=== PATIENT | male | born 1970 | race Caucasian/White ===

== ENCOUNTER 2019-01-24 09:32 | Inpatient (IN) ==
[2019-01-24] MEDS ORDERED: CeFAZolin Syr 3,000MG/30 ML 3,000 MG/30 ML SYRINGE IVPB ONE (09:54)
[2019-01-24] MEDS ORDERED: Ringers Solution, Lactated 1,000 ML IVC SCH (10:00)
[2019-01-24] MEDS ORDERED: *HR* FentaNYL (PF) 100 MCG/2 ML VIAL ONE (10:12)
[2019-01-24] MEDS ORDERED: Lidocaine -MPF 2% 2 ML VIAL ONE ×2 (10:12→10:42)
[2019-01-24] MEDS ORDERED: Ondansetron 4 MG/2 ML VIAL ONE (10:12)
[2019-01-24] MEDS ORDERED: *HR* Propofol 200 MG/20 ML VIAL IVP ONE (10:12)
[2019-01-24] MEDS ORDERED: *HR* Rocuronium Bromide 50 MG/5 ML VIAL ONE ×2 (10:12→13:10)
[2019-01-24] MEDS ORDERED: *HR* Succinylcholine 200 MG/10 ML VIAL IVP ONE (10:12)
[2019-01-24] MEDS ORDERED: Dexamethasone 4 MG/ML VIAL ONE (10:12)
[2019-01-24] MEDS ORDERED: Scopolamine Patch 1.5 MG PATCH.TD72 TD ONE (10:33)
[2019-01-24] MEDS ORDERED: Ondansetron 4 MG/2 ML VIAL IVP ONE (10:34)
[2019-01-24] MEDS ORDERED: *HR* OxyCODONE Immed Rel 5 MG TABLET PO PRN (10:34)
[2019-01-24] MEDS ORDERED: *HR* Promethazine 25 MG/ML VIAL IVP PRN (10:34)
[2019-01-24] MEDS ORDERED: *HR* HYDROmorphone (PF) 1 MG/ML SYRINGE IVP PRN (10:34)
[2019-01-24] MEDS ORDERED: Ketamine *HR* 500 MG/10 ML MDV ONE (10:39)
[2019-01-24] MEDS ORDERED: *HR* Vasopressin 20 UNIT/ML VIAL ONE (11:56)
[2019-01-24] MEDS ORDERED: *HR* Midazolam HCl 2 MG/2 ML VIAL ONE ×3 (12:02→16:19)
[2019-01-24] MEDS ORDERED: *HR* PHENYLEPHRINE 1,000 MCG/10 ML SYRINGE IVP ONE (12:17)
[2019-01-24] MEDS ORDERED: Hydrocortisone Sodium Succ 100 MG/2 ML VIAL ONE (13:02)
[2019-01-24 13:29] LABS: ABG Base Excess -6 mEq/L (-2 to 3); ABG Chloride 114 mEq/L (98-107); ABG Glucose 95 mg/dL (60-95); ABG HCO3 20 mEq/L (21-27); ABG Ionized Calcium 0.78 mmol/L (1.15-1.35); ABG Oxygen Saturation 94 % (95-98); ABG PCO2 37 mmHg (35-45); ABG PH 7.33 pH Units (7.32-7.45); ABG PO2 75 mmHg (85-104); ABG TCO2 21 mEq/L (20-26)
[2019-01-24] MEDS ORDERED: Bupivacaine/EPI 1:200k 0.25%PF 30 ML VIAL ONE (13:33)
[2019-01-24 13:40] LABS: ABG Base Excess -6 mEq/L (-2 to 3); ABG Chloride 117 mEq/L (98-107); ABG Glucose 106 mg/dL (60-95); ABG HCO3 19 mEq/L (21-27); ABG Ionized Calcium 0.75 mmol/L (1.15-1.35); ABG Oxygen Saturation 97 % (95-98); ABG PCO2 35 mmHg (35-45); ABG PH 7.35 pH Units (7.32-7.45); ABG PO2 92 mmHg (85-104); ABG TCO2 20 mEq/L (20-26)
[2019-01-24] MEDS ORDERED: Dexmedetomidine HCl 400 MCG/100 ML MLS IVC ONE (14:13)
[2019-01-24] MEDS ORDERED: Naloxone 0.4 MG/ML INJ IVP PRN ×2 (14:43→15:16)
[2019-01-24] MEDS ORDERED: Isovue-370 500 ML BOTTLE IVP ONE ×3 (15:04→17:40)
[2019-01-24 15:12] LABS: ABG Base Excess 3 mEq/L (-2 to 3); ABG HCO3 30 mEq/L (21-27); ABG Oxygen Saturation 88 % (95-98); ABG PCO2 55 mmHg (35-45); ABG PH 7.34 pH Units (7.32-7.45); ABG PO2 60 mmHg (85-104); ABG TCO2 31 mEq/L (20-26); Blood Gas Modality VC; Blood Gas VT 500 cc
[2019-01-24 15:28] LABS: Basophils % 0.1 %; Eosinophils % 0.3 %; Hematocrit 36.6 % (37.5-50.1); Hemoglobin 12.3 g/dL (12.9-16.9); Immature Granulocytes % 0.3 % (0-4); Lymphocytes # 1.1 K/mcL (0.6-4.6); Lymphocytes % 16.3 %; Mean Corpuscular HGB Conc 33.6 g/dL (31.6-35.5); Mean Corpuscular Hemoglobin 29.6 pg (28.0-33.3); Mean Platelet Volume 10.8 fL (9.4-12.4); Monocytes # 0.2 K/mcL (0.0-1.3); Monocytes % 3.5 %; Neutrophils # 5.5 K/mcL (1.6-8.9); Platelet Count 205 K/mcL (140-400); Red Blood Count 4.16 M/mcL (4.19-5.50); Red Cell Distribution Width 12.4 % (11.5-14.5); Segmented Neutrophils % 79.5 %
[2019-01-24] MEDS ORDERED: 0.9 % Sodium Chloride 250 ML ONE (15:33)
[2019-01-24] MEDS ORDERED: *HR* Norepinephrine 4 MG/4 ML VIAL IVC ONE (15:33)
[2019-01-24 15:44] LABS: BUN/Creatinine Ratio 14 (6-26); Blood Urea Nitrogen 14 mg/dL (6-20); Calcium 8.8 mg/dL (8.6-10.3); Carbon Dioxide 27 mEq/L (23-29); Chloride 103 mEq/L (98-107); Glucose 158 mg/dL (70-105); Osmolality,Calculated 290 (280-300); Potassium 4.1 mEq/L (3.5-5.1); Sodium 138 mEq/L (136-145); Troponin I < 0.03 ng/mL (< 0.04); eGFR For African Americans > 60 (> 60); eGFR For Non-African Americans > 60 (> 60)
[2019-01-24] MEDS ORDERED: *HR* Midazolam HCl 2 MG/2 ML VIAL IVP ONE ×2 (16:01→16:39)
[2019-01-24 16:10] LABS: Prothrombin Time 11.9 Seconds (9.4-12.1)
[2019-01-24] MEDS: 0.9 % Sodium Chloride 1,000 ML IVC SCH (16:45)
[2019-01-24] MEDS ORDERED: Artificial Tears SOLN 15 ML BOTTLE BOTH EYES PRN (17:43)
[2019-01-24] MEDS ORDERED: FentaNYL (PF) 1,000 MCG in 0.9 % Sodium Chloride 80 ML IVC SCH (18:15)
[2019-01-24 19:11] LABS: ABG Base Excess 2 mEq/L (-2 to 3); ABG HCO3 29 mEq/L (21-27); ABG Oxygen Saturation 86 % (95-98); ABG PCO2 54 mmHg (35-45); ABG PH 7.34 pH Units (7.32-7.45); ABG PO2 55 mmHg (85-104); ABG TCO2 31 mEq/L (20-26); Blood Gas Modality CPAP/PS; Blood Gas Pressure Support 5 cm H2O
[2019-01-24] MEDS: Artificial Tears SOLN 15 ML BOTTLE BOTH EYES SCH ×2 (19:32→22:24)
[2019-01-24] MEDS: Norepinephrine 8 MG in 0.9 % Sodium Chloride 250 ML IVC SCH (19:32)
[2019-01-24 19:49] LABS: VBG Ionized Calcium 1.18 mmol/L (1.15-1.35)
[2019-01-24] MEDS: Chlorhexidine Rinse 15 ML MOUTHWASH MM SCH (20:49)
[2019-01-24] MEDS: Acetaminophen IV 1,000 MG/100 ML INFUS..BTL IVPB PRN (21:12)
[2019-01-25] MEDS: 0.9 % Sodium Chloride 1,000 ML IVC SCH ×2 (01:52→13:36)
[2019-01-25 03:57] LABS: Hematocrit 37.5 % (37.5-50.1); Hemoglobin 12.8 g/dL (12.9-16.9); Immature Granulocytes % 0.3 % (0-4); Lymphocytes # 1.2 K/mcL (0.6-4.6); Lymphocytes % 13.3 %; Mean Corpuscular HGB Conc 34.1 g/dL (31.6-35.5); Mean Corpuscular Hemoglobin 29.1 pg (28.0-33.3); Mean Corpuscular Volume 85.2 fL (83.0-100.0); Mean Platelet Volume 11.6 fL (9.4-12.4); Monocytes # 0.3 K/mcL (0.0-1.3); Neutrophils # 7.5 K/mcL (1.6-8.9); Platelet Count 255 K/mcL (140-400); Red Cell Distribution Width 12.4 % (11.5-14.5); Segmented Neutrophils % 83.4 %
[2019-01-25 04:02] LABS: BUN/Creatinine Ratio 14 (6-26); Blood Urea Nitrogen 15 mg/dL (6-20); Calcium 9.1 mg/dL (8.6-10.3); Carbon Dioxide 28 mEq/L (23-29); Chloride 102 mEq/L (98-107); Glucose 152 mg/dL (70-105); Magnesium 1.6 mg/dL (1.6-2.6); Osmolality,Calculated 288 (280-300); Sodium 137 mEq/L (136-145); eGFR For African Americans > 60 (> 60); eGFR For Non-African Americans > 60 (> 60)
[2019-01-25 04:20] LABS: ABG Base Excess 3 mEq/L (-2 to 3); ABG HCO3 29 mEq/L (21-27); ABG Oxygen Saturation 96 % (95-98); ABG PCO2 46 mmHg (35-45); ABG PO2 84 mmHg (85-104); ABG TCO2 30 mEq/L (20-26)
[2019-01-25] MEDS ORDERED: *HR* Heparin 5,000 UNIT/ML VIAL SQ SCH (06:00)
[2019-01-25] MEDS ORDERED: Pantoprazole 40 MG VIAL IVP SCH (09:00)
[2019-01-25] MEDS: Chlorhexidine Rinse 15 ML MOUTHWASH MM SCH (09:39)
[2019-01-25] MEDS: Acetaminophen IV 1,000 MG/100 ML INFUS..BTL IVPB PRN ×2 (09:39→15:32)
[2019-01-25] MEDS: Norepinephrine 8 MG in 0.9 % Sodium Chloride 250 ML IVC SCH (13:35)
[2019-01-25] MEDS ORDERED: Norepinephrine 8 MG in 0.9 % Sodium Chloride 250 ML IVC SCH (14:45)
[2019-01-25] MEDS ORDERED: Isovue-370 500 ML BOTTLE IVP ONE (14:45)
[2019-01-25] MEDS ORDERED: 0.9 % Sodium Chloride 1,000 ML IVC SCH (14:45)
[2019-01-25] MEDS ORDERED: FentaNYL (PF) 1,000 MCG in 0.9 % Sodium Chloride 80 ML IVC SCH (14:45)
[2019-01-25] MEDS ORDERED: Artificial Tears SOLN 15 ML BOTTLE BOTH EYES PRN (14:45)
[2019-01-25] MEDS ORDERED: Naloxone 0.4 MG/ML INJ IVP PRN (14:45)
[2019-01-25] MEDS: *HR* Heparin 5,000 UNIT/ML VIAL SQ SCH (17:49)
[2019-01-25] MEDS ORDERED: Chlorhexidine Rinse 15 ML MOUTHWASH MM SCH (21:00)
[2019-01-25] MEDS: *HR* HYDROcodone/Acet 5/325 mg TABLET PO PRN (21:32)
[2019-01-26] MEDS: Acetaminophen IV 1,000 MG/100 ML INFUS..BTL IVPB PRN
[2019-01-26] MEDS: *HR* Heparin 5,000 UNIT/ML VIAL SQ SCH ×2 (05:41→17:01)
[2019-01-26] MEDS ORDERED: Regadenoson 0.4 MG/5 ML SYRINGE IVP ONE (07:24)
[2019-01-26] MEDS: Pantoprazole 40 MG VIAL IVP SCH (08:03)
[2019-01-26] MEDS: *HR* HYDROcodone/Acet 5/325 mg TABLET PO PRN ×2 (10:44→17:01)
[2019-01-26] MEDS: amLODIPine 5 MG TABLET PO SCH (12:02)
[2019-01-26] MEDS: Lisinopril 20 MG TABLET PO SCH ×2 (12:03→16:13)
[2019-01-27] MEDS: *HR* HYDROcodone/Acet 5/325 mg TABLET PO PRN (03:08)
[2019-01-27] MEDS: *HR* Heparin 5,000 UNIT/ML VIAL SQ SCH ×2 (06:25→17:23)
[2019-01-27] MEDS ORDERED: Regadenoson 0.4 MG/5 ML SYRINGE IVP ONE ×2 (07:18→07:25)
[2019-01-27] MEDS: amLODIPine 5 MG TABLET PO SCH (09:22)
[2019-01-27] MEDS: Lisinopril 20 MG TABLET PO SCH (09:22)
[2019-01-27] MEDS: Pantoprazole 40 MG VIAL IVP SCH (09:23)
[2019-01-28] MEDS: *HR* Heparin 5,000 UNIT/ML VIAL SQ SCH ×2 (05:16→17:46)
[2019-01-28 06:28] LABS: Basophils % 0.3 %; Eosinophils # 0.1 K/mcL (0.0-0.6); Eosinophils % 1.2 %; Hematocrit 40.1 % (37.5-50.1); Immature Granulocytes % 0.7 % (0-4); Lymphocytes # 2.1 K/mcL (0.6-4.6); Lymphocytes % 34.2 %; Mean Corpuscular HGB Conc 34.9 g/dL (31.6-35.5); Mean Corpuscular Hemoglobin 29.4 pg (28.0-33.3); Mean Corpuscular Volume 84.2 fL (83.0-100.0); Mean Platelet Volume 11.4 fL (9.4-12.4); Monocytes # 0.6 K/mcL (0.0-1.3); Monocytes % 9.2 %; Neutrophils # 3.3 K/mcL (1.6-8.9); Platelet Count 231 K/mcL (140-400); Red Blood Count 4.76 M/mcL (4.19-5.50); Red Cell Distribution Width 12.3 % (11.5-14.5); Segmented Neutrophils % 54.4 %; White Blood Count 6.1 K/mcL (4.3-11.1)
[2019-01-28 06:53] LABS: BUN/Creatinine Ratio 14 (6-26); Blood Urea Nitrogen 15 mg/dL (6-20); Calcium 9.5 mg/dL (8.6-10.3); Carbon Dioxide 27 mEq/L (23-29); Chloride 100 mEq/L (98-107); Glucose 114 mg/dL (70-105); Osmolality,Calculated 290 (280-300); Potassium 3.7 mEq/L (3.5-5.1); Sodium 139 mEq/L (136-145); eGFR For African Americans > 60 (> 60); eGFR For Non-African Americans > 60 (> 60)
[2019-01-28] MEDS: amLODIPine 5 MG TABLET PO SCH (08:42)
[2019-01-28] MEDS: Pantoprazole 40 MG VIAL IVP SCH (08:42)
[2019-01-28] MEDS: Lisinopril 20 MG TABLET PO SCH (08:42)
[2019-01-28] MEDS: *HR* HYDROcodone/Acet 5/325 mg TABLET PO PRN (13:01)
[2019-01-28] MEDS ORDERED: 0.9 % Sodium Chloride 2,000 ML ONE (16:15)
[2019-01-28] MEDS ORDERED: ISOVUE-370 200 ML INFUS..BTL ONE (16:16)
[2019-01-28] MEDS ORDERED: Nitroglycerin 1,000 MCG/10 ML VIAL IV ONE (16:16)
[2019-01-28] MEDS ORDERED: Heparin 1,000 UNITS/500 mL 500 ML ONE (16:16)
[2019-01-28] MEDS ORDERED: *HR* Heparin 10,000 UNIT/10 ML VIAL ONE (16:16)
[2019-01-28] MEDS ORDERED: *HR* Midazolam HCl 2 MG/2 ML VIAL ONE (16:25)
[2019-01-28] MEDS ORDERED: *HR* FentaNYL (PF) 100 MCG/2 ML VIAL ONE (16:26)
[2019-01-28 18:25] LABS: Urine Collection Volume NOT PROVIDED mL
[2019-01-28 20:30] VITALS: BP 145/90
== END 2019-01-28 20:45 | disposition home or self-care (01) | DRG 659 ==
LOC: SAMDAY 09:32 → ICNU 14:57 → 3ANU 01-25 23:05 → 2ANU 01-28 16:22
PROVIDERS: ADMIT Urology; ATTEND Urology

== ENCOUNTER 2020-06-22 20:43 | Observation (INO) ==
[2020-06-22 21:23] LABS: Basophils % 0.2 %; Eosinophils % 0.2 %; Hematocrit 46.2 % (37.5-50.1); Hemoglobin 15.5 g/dL (12.9-16.9); Immature Granulocytes % 0.2 % (0-4); Lymphocytes # 2.2 K/mcL (0.6-4.6); Lymphocytes % 26.4 %; Mean Corpuscular HGB Conc 33.5 g/dL (31.6-35.5); Mean Corpuscular Hemoglobin 28.8 pg (28.0-33.3); Mean Corpuscular Volume 85.7 fL (83.0-100.0); Mean Platelet Volume 10.6 fL (9.4-12.4); Monocytes # 0.7 K/mcL (0.0-1.3); Monocytes % 8.2 %; Neutrophils # 5.5 K/mcL (1.6-8.9); Platelet Count 291 K/mcL (140-400); Red Blood Count 5.39 M/mcL (4.19-5.50); Red Cell Distribution Width 12.8 % (11.5-14.5); Segmented Neutrophils % 64.8 %; White Blood Count 8.5 K/mcL (4.3-11.1)
[2020-06-22 21:44] LABS: BUN/Creatinine Ratio 14 (6-26); Blood Urea Nitrogen 22 mg/dL (6-20); Calcium 10.2 mg/dL (8.6-10.3); Carbon Dioxide 22 mEq/L (23-29); Chloride 102 mEq/L (98-107); Glucose 114 mg/dL (70-105); Osmolality,Calculated 284 (280-300); Potassium 4.4 mEq/L (3.5-5.1); Sodium 135 mEq/L (136-145); Troponin I < 0.03 ng/mL (< 0.04); eGFR For African Americans 57 (> 60); eGFR For Non-African Americans 47 (> 60)
[2020-06-23] MEDS ORDERED: Nitroglycerin 0.4 MG TAB.SUBL SL PRN (00:26)
[2020-06-23] MEDS ORDERED: Ondansetron 4 MG/2 ML VIAL IVP PRN (00:28)
[2020-06-23] MEDS ORDERED: Naloxone 0.4 MG/ML INJ IVP PRN (00:28)
[2020-06-23] MEDS ORDERED: Acetaminophen 325 MG TABLET PO PRN (00:28)
[2020-06-23] MEDS ORDERED: Perflutren Lipid Microsphere 1.3 ML in 0.9 % Sodium Chloride 8.7 ML IVP PRN (01:21)
[2020-06-23 04:49] LABS: Hematocrit 46.4 % (37.5-50.1); Hemoglobin 15.3 g/dL (12.9-16.9); Mean Corpuscular Hemoglobin 28.4 pg (28.0-33.3); Mean Corpuscular Volume 86.2 fL (83.0-100.0); Mean Platelet Volume 10.8 fL (9.4-12.4); Platelet Count 276 K/mcL (140-400); Red Blood Count 5.38 M/mcL (4.19-5.50); White Blood Count 6.6 K/mcL (4.3-11.1)
[2020-06-23 04:57] LABS: INR 1.1; Prothrombin Time 12.8 Seconds (9.4-12.1)
[2020-06-23 04:59] LABS: Activated Partial Thrombo Time 29.5 Seconds (26.0-36.0)
[2020-06-23 05:09] LABS: Calcium 10.3 mg/dL (8.6-10.3); Chol/HDL Ratio 5.4 (0-4.9); Potassium 4.1 mEq/L (3.5-5.1)
[2020-06-23 05:21] LABS: Thyroid Stimulating Hormone 2.678 mcIU/mL (0.340-5.600)
[2020-06-23] MEDS ORDERED: *HR* Heparin 5,000 UNIT/ML VIAL SQ SCH (06:00)
[2020-06-23] MEDS ORDERED: Regadenoson 0.4 MG/5 ML SYRINGE IVP ONE (06:13)
[2020-06-23 10:42] VITALS: BP 125/81
== END 2020-06-23 15:18 | disposition home or self-care (01) ==
LOC: 3BNU 20:43 → EMEROOARM 20:43 → 3BNU 23:59
PROVIDERS: ADMIT Student in an Organized Health Care Education/Training Program; ATTEND Student in an Organized Health Care Education/Training Program